=== PATIENT | male | born 1965 | race Caucasian/White ===

== ENCOUNTER 2017-12-21 17:57 | Emergency (ER) | payer MEDICARE, OTHER ==
[2017-12-21 19:23] LABS: BASOPHILS % 0.8 (0.0-1.5); MEAN CORPUSCULAR VOLUME 89.4 fl (80.0-100.0); MONOCYTES % 3.7 % (0.0-11.0); NEUTROPHILS # 4.6 # k/uL (1.4-7.7)
[2017-12-21 19:26] LABS: eGFR (Non-African) > 60
--- NOTE | 2017-12-21 21:18 | ED Physician Documentation ---
Palpitations - HISTORIAN Historian: patient - HPI Stated Complaint: Told by clinic in [facility] he had and EKG done today and was irregular Chief Complaint: Palpitations Additional Information: x 2 months since being put on metformin Onset: days ago (42) Timing: sudden onset Duration: occurs sporadically, intermittent episodes Quality: irregular Associated Symptoms: none Worsened by:: nothing Further Comments: no - ROS CONST: no problems RESP: denies: productive cough, bloody cough GI/: denies: nausea MS/SKIN/LYMPH: denies: ankle swelling, calf pain, rash, leg pain EYES/ENT: none NEURO/PSYCH: none - SOCIAL HX Smoking History: non-smoker Alcohol Use: none Drug Use: none - FAMILY HX Family History: other (CAD) - PAST HX Cardiac Disease: CAD, AMI Other History: diabetes Type 2 Surgeries/Procedures: none Immunizations: referred to PCP Allergies/Adverse Reactions: Allergies Allergy/AdvReac Type Severity Reaction Status Date / Time No Known Allergies Allergy Verified 12/21/17 18:40 Home Medications: Ambulatory Orders Medication Instructions Recorded Clopidogrel Bisulfate [Clopidogrel] 75 mg PO DIRECTED 12/21/17 Metformin HCl [Glucophage] 500 mg PO BID 12/21/17 Simvastatin [Zocor] 40 mg PO D 12/21/17 - VITAL SIGNS Vital Signs: Vital Signs Temp Pulse Resp BP Pulse Ox 98.3 F 89 14 127/90 96 12/21/17 21:25 12/21/17 21:25 12/21/17 21:25 12/21/17 21:25 12/21/17 21:25 - REVIEWED ASSESSMENTS Nursing Assessment Reviewed: Yes Vitals Reviewed: Yes Progress - Results/Orders Results/Orders: cbc, cmp, pt/ptt/inr, ua, trop, bnp, cxr, ekg ordered - Progress Progress: pt. stable entire time in er Critical Care Note - Critical Care Note Total Time (mins): 0 ED Results Lab/Radiology - Lab Results Lab Results: Lab Results 12/21/17 12/21/17 12/21/17 19:30 18:35 18:35 WBC RBC Hgb Hct MCV MCH MCHC RDW Plt Count Neut % (Auto) Lymph % (Auto) Kleberg % (Auto) Eos % (Auto) Baso % (Auto) Neut # (Auto) Lymph # (Auto) Kleberg # (Auto) Eos # (Auto) Baso # (Auto) Reactive Lymphs % Reactive Lymphs # PT 11.5 Seconds Seconds (9.4-11.6) INR 1.10 (0.9-1.2) APTT 23.9 Seconds L Seconds (24.5-32.8) Sodium Potassium Chloride Carbon Dioxide BUN Creatinine Estimated Creat Clear Est GFR ( Amer) Est GFR (Non-Af Amer) Glucose Calcium Total Bilirubin AST ALT Alkaline Phosphatase Troponin I < 0.03 ng/mL L ng/mL (0.03-0.06) NT-Pro-B Natriuret Pep 420.9 pg/mL H pg/mL (15.0-125.0) Total Protein Albumin Urine Color Yellow (YELLOW) Urine Appearance Clear (CLEAR) Urine pH 5.5 (5.0 - 8.0) Ur Specific Strum >=1.030 H (1.010-1.030) Urine Protein Negative mg/dL mg/dL (NEGATIVE) Urine Ketones Negative mg/dL mg/dL (NEGATIVE) Urine Occult Blood Negative (NEGATIVE) Urine Nitrite Negative (NEGATIVE) Urine Bilirubin Negative (NEGATIVE) Urine Urobilinogen 0.2 Eu Eu (0.2-1.0) Ur Leukocyte Esterase Negative (NEGATIVE) Urine Glucose Negative mg/dL mg/dL (NEGATIVE) 12/21/17 12/21/17 18:35 18:35 WBC 7.20 K/ul K/ul (4.00-12.00) RBC 5.20 M/ul M/ul (3.90-5.20) Hgb 16.1 g/dL g/dL (12.0-18.0) Hct 46.5 % % (37.0-53.0) MCV 89.4 fl fl (80.0-100.0) MCH 31.0 pg pg (28.0-34.0) MCHC 34.7 g/dL g/dL (30.0-36.0) RDW 14.9 % H % (11.3-14.3) Plt Count 210 K/mm3 K/mm3 (130-400) Neut % (Auto) 64.9 % % (39.0-79.0) Lymph % (Auto) 26.9 % % (16.0-50.0) Kleberg % (Auto) 3.7 % % (0.0-11.0) Eos % (Auto) 2.0 % % (0.0-6.8) Baso % (Auto) 0.8 (0.0-1.5) Neut # (Auto) 4.6 # k/uL # k/uL (1.4-7.7) Lymph # (Auto) 1.9 # k/uL # k/uL (0.6-4.0) Kleberg # (Auto) 0.3 # k/uL # k/uL (0.0-0.9) Eos # (Auto) 0.2 # k/uL # k/uL (0.0-0.6) Baso # (Auto) 0.1 # k/uL # k/uL (0.0-0.5) Reactive Lymphs % 1.6 % % (0.0-5.0) Reactive Lymphs # 0.1 # k/uL # k/uL (0.0-0.8) PT INR APTT Sodium 142 mmol/L mmol/L (136-145) Potassium 3.9 mmol/L mmol/L (3.5-5.1) Chloride 105 mmol/L mmol/L (98-107) Carbon Dioxide 25 mmol/L mmol/L (22-30) BUN 10 mg/dL mg/dL (9-20) Creatinine 0.70 mg/dL mg/dL (0.66-1.25) Estimated Creat Clear 199 Est GFR ( Amer) > 60 (60 - ) Est GFR (Non-Af Amer) > 60 (60 - ) Glucose 152 mg/dL H mg/dL (74-106) Calcium 9.2 mg/dL mg/dL (8.4-10.2) Total Bilirubin 0.9 mg/dL mg/dL (0.2-1.3) AST 39 U/L U/L (15-46) ALT 73 U/L H U/L (13-69) Alkaline Phosphatase 77 U/L U/L (38-126) Troponin I NT-Pro-B Natriuret Pep Total Protein 7.5 g/dL g/dL (6.3-8.2) Albumin 4.1 g/dL g/dL (3.5-5.0) Urine Color Urine Appearance Urine pH Ur Specific Strum Urine Protein Urine Ketones Urine Occult Blood Urine Nitrite Urine Bilirubin Urine Urobilinogen Ur Leukocyte Esterase Urine Glucose - Radiology Radiology Impressions: cxr shows pulmonary vascular congestion - Orders Orders: ED Orders Category Date Time Status Continuous Pulse Oximetry Q1H Care 12/21/17 18:[address] IV Lock 1T Care 12/21/17 18:24 Active Telemetry NOW Care 12/21/17 18:26 Active CHEST 1VIEW [RAD] Routine Exams 12/21/17 Completed BNP [NT-proBNP] Routine Lab 12/21/17 18:35 Completed CBC/PLATELET/DIFF Routine Lab 12/21/17 18:35 Completed CMP Routine Lab 12/21/17 18:35 Completed PT-INR Routine Lab 12/21/17 18:35 Completed PTT Routine Lab 12/21/17 18:35 Completed TROPONIN I (cTnI) Routine Lab 12/21/17 18:35 Completed UA MACRO DIP ONLY Routine Lab 12/21/17 19:30 Completed EKG WITH COMPARISON Routine Ther 12/21/17 Ordered Palpitations Physical Exam - EXAM General Appearance: no distress EENT: eye inspection normal, ENT inspection normal, pharynx normal, no signs of dehydration, GIOVANI, no nystagmus, TM's nml NECK: normal inspection, thyroid normal, supple RESPIRATORY: no respiratory distress, breath sounds nml, chest non-tender CVS: reg rate & rhythm, heart sounds normal, equal pulses, no murmur ABDOMEN: soft, no organomegaly, normal bowel sounds, no abdominal bruit, no distension, non-tender BACK: normal inspection, no CVA tenderness SKIN: warm/dry, normal color EXTREMITIES: non-tender, normal range of motion, no evidence of injury, no edema NEURO: oriented X3, CN's nml as tested, motor nml, sensation nml, mood/affect nml, cognition normal Discharge Clincal Impression: Pulmonary vascular congestion Referrals: Primary Doctor,No [Primary Care Provider] - 2 Days Condition: Stable Disposition: 01 HOME, SELF-CARE Decision to Admit: NO Decision Time: 09:15
[2017-12-21 22:38] VITALS: BP 127/90
[2017-12-22 06:44] LABS: APPEARANCE,URINE CLEAR (CLEAR); COLOR,URINE YELLOW (YELLOW); OCCULT BLOOD,URINE NEGATIVE (NEGATIVE); PH URINE 5.5 (5.0 - 8.0); UROBILINOGEN URINE 0.2 Eu (0.2-1.0)
--- NOTE | 2017-12-22 07:06 | Diagnostic Imaging Report ---
AMANDA BOATENG [facility] [id number] [facility] [address] [address] Report Submission Date: Dec 21, 2017 7:34:24 PM CDT Patient Study Name: TK HERNADEZ Date: Dec 21, 2017 7:11:08 PM CDT Modality Type: DX Gender: M Description: CHEST : 69 Institution: [facility] Physician: AMANDA BOATENG A single frontal view of the chest History: HEART IRREGULARITY, PT STATES HE HAS BEEN FEELING PALPITATIONS FOR ABOUT A MONTH No comparison studies Cardiac size is upper limits of normal. Exam is limited secondary to patient's body habitus. Mild pulmonary vascular congestion. Right bibasilar atelectasis. No pneumothorax. No acute osseous pathology. Impression: 1. Pulmonary vascular congestion. 2. Right basilar atelectasis. Electronically signed on Dec 21, 2017 7:34:24 PM CDT by: Faith CRUMP
== END 2017-12-21 21:26 | disposition home or self-care (01) ==
LOC: ED 17:57
DX: R94.31 Abnormal electrocardiogram [ECG] [EKG] (principal); E11.9 Type 2 diabetes mellitus without complications
CPT/HCPCS: 71045; 80053; 81002; 83880; 84484; 85025; 85610; 85730; 99283; S1016